=== PATIENT | male | born 1970 ===

== ENCOUNTER 2021-12-17 22:32 | Inpatient (IN) | payer OTHER ==
[~2021-12-17] VITALS: Ht 193 cm; Wt 167.8 kg
[2021-12-17 23:39] LABS: HEMATOCRIT 29.6 % (36.7-47.1); MEAN CORPUSCULAR HEMOGLOBIN 32.5 uug (23.8-33.4); MEAN CORPUSCULAR VOLUME 96.1 fL (73.0-96.2); PLATELET COUNT (AUTO) 280 K/uL (152-348)
[2021-12-17 23:41] LABS: CREATININE 1.7 mg/dL (0.6-1.3); POTASSIUM 4.9 mmol/L (3.5-5.1)
[2021-12-17 23:54] LABS: BILIRUBIN,DIRECT 0.2 mg/dL (0.0-0.2); BILIRUBIN,TOTAL 0.6 mg/dL (0.2-1.0); TOTAL PROTEIN, SERUM 7.5 g/dL (6.4-8.2)
[2021-12-18] MEDS ORDERED: AZITHROMYCIN IV 500 MG in IV DEXTROSE 5% 250 ML IV ONE (00:15)
[2021-12-18] MEDS ORDERED: CEFTRIAXONE 1 G in IV DEXTROSE 5% 50 ML IV ONE (00:15)
[2021-12-18] MEDS ORDERED: CEFTRIAXONE /D5W 50ML IVPB **ER PYXIS IV ONE (00:29)
[2021-12-18] MEDS ORDERED: AZITHROMYCIN 500MG/ D5W 250ML IVPB **ER PYXIS ONLY IV ONE (00:29)
[2021-12-18] MEDS ORDERED: CARV25TA2 PO (03:25)
[2021-12-18] MEDS ORDERED: LOSA100T31 PO (03:25)
[2021-12-18] MEDS ORDERED: TRAZ-257 PO (03:25)
[2021-12-18] MEDS ORDERED: BUDE180A IH (03:25)
[2021-12-18] MEDS ORDERED: VENL37.55 PO (03:25)
[2021-12-18] MEDS ORDERED: CHOL10005 PO (03:25)
[2021-12-18] MEDS ORDERED: ALBU8.5H8 IH (03:25)
[2021-12-18] MEDS ORDERED: ASPI81TA31 PO (03:25)
[2021-12-18] MEDS ORDERED: ATOR40TA PO (03:25)
[2021-12-18] MEDS ORDERED: METF-440 PO (03:25)
[2021-12-18] MEDS ORDERED: FERR325T28 PO (03:25)
[2021-12-18] MEDS ORDERED: ASCO-375 PO (03:25)
[2021-12-18] MEDS ORDERED: NIFE30TA2 PO (03:25)
[2021-12-18] MEDS ORDERED: ALLO100T PO (03:25)
[2021-12-18] MEDS ORDERED: IV NORMAL SALINE 250 ML IV ONE (03:30)
[2021-12-18] MEDS ORDERED: ALBUTEROL SULFATE 8 GM HFA.AER.AD IH PRN (06:15)
[2021-12-18] MEDS ORDERED: MAGNESIUM HYDROXIDE 30 ML LIQUID UDC PO PRN (06:15)
[2021-12-18] MEDS ORDERED: DEXTROSE 50% 50 ML DISP.SYRIN IV PRN (06:15)
[2021-12-18] MEDS ORDERED: ACETAMINOPHEN 325 MG TABLET PO PRN (06:15)
[2021-12-18] MEDS ORDERED: CEFTRIAXONE 1 G in IV DEXTROSE 5% 50 ML IV SCH (06:15)
[2021-12-18] MEDS ORDERED: ONDANSETRON 4 MG/2 ML VIAL IV PRN (06:15)
[2021-12-18] MEDS ORDERED: Z GUARD REMEDY PASTE 57 GM TUBE TOP PRN (06:15)
[2021-12-18] MEDS: BLOOD SUGAR DIAGNOSTIC 1 EACH STRIP VI SCH ×4 (08:22→20:41)
[2021-12-18] MEDS ORDERED: Medication Not On Formulary EA (Cholecalciferol (Vitamin D3) (Vitamin D3) 1 TAB) PO SCH (09:00)
[2021-12-18] MEDS: ASPIRIN 81 MG TAB.CHEW PO SCH (10:32)
[2021-12-18] MEDS: ASCORBIC ACID 500 MG TABLET PO SCH (10:32)
[2021-12-18] MEDS: CHOLECALCIFEROL 1,000 UNIT TABLET PO SCH (10:32)
[2021-12-18] MEDS: NIFEdipine XL 30 MG TABSR PO SCH (10:33)
[2021-12-18] MEDS: ALLOPURINOL 100 MG TABLET PO SCH (10:34)
[2021-12-18] MEDS: CARVEDILOL 25 MG TABLET PO SCH ×2 (11:17→17:14)
[2021-12-18] MEDS: PANTOPRAZOLE SODIUM 40 MG TABLET.DR PO SCH (11:17)
[2021-12-18] MEDS: INSULIN REGULAR, HUMAN 300 UNIT/3 ML VIAL SQ PRN ×3 (12:16→20:43)
[2021-12-18] MEDS: CEFTRIAXONE 2 G in IV DEXTROSE 5% 100 ML IV SCH (12:42)
[2021-12-18 12:52] VITALS: BP 167/92
[2021-12-18] MEDS ORDERED: FUROSEMIDE 40 MG/4 ML VIAL IV ONE (13:45)
[2021-12-18] MEDS: HEPARIN SODIUM,PORCINE 5,000 UNITS/ML VIAL SQ SCH ×2 (13:48→20:32)
[2021-12-18 16:24] VITALS: BP 120/63
[2021-12-18] MEDS: ATORVASTATIN 40 MG TABLET PO SCH (20:30)
[2021-12-18] MEDS: TRAZODONE 100 MG TABLET PO SCH (20:31)
[2021-12-18] MEDS: VENLAFAXINE XR 150 MG CAP.SR.24H PO SCH (20:46)
[2021-12-18] MEDS ORDERED: VENLAFAXINE XR 37.5 MG CAP.SR.24H PO SCH (21:00)
[2021-12-18] MEDS: BUDESONIDE 0.25 MG/2 ML NEBU NEB SCH ×2 (21:39→22:04)
[2021-12-19] VITALS: BP 142/67
[2021-12-19 04:31] VITALS: BP 156/74
[2021-12-19] MEDS: PANTOPRAZOLE SODIUM 40 MG TABLET.DR PO SCH (06:28)
[2021-12-19] MEDS: BLOOD SUGAR DIAGNOSTIC 1 EACH STRIP VI SCH ×4 (06:33→21:22)
[2021-12-19] MEDS: BUDESONIDE 0.25 MG/2 ML NEBU NEB SCH ×3 (07:25→19:30)
[2021-12-19 08:00] VITALS: BP 136/77
[2021-12-19 08:17] LABS: HEMATOCRIT 28.1 % (36.7-47.1); MEAN CORPUSCULAR HEMOGLOBIN 33.3 uug (23.8-33.4); MEAN CORPUSCULAR VOLUME 96.3 fL (73.0-96.2); PLATELET COUNT (AUTO) 269 K/uL (152-348)
[2021-12-19 08:28] LABS: CREATININE 1.6 mg/dL (0.6-1.3); MAGNESIUM 2.2 mg/dL (1.8-2.4); POTASSIUM 4.4 mmol/L (3.5-5.1)
[2021-12-19 08:34] LABS: THYROID STIMULATING HORMONE 1.12 mIU/mL (0.358-3.740)
[2021-12-19] MEDS ORDERED: FUROSEMIDE 40 MG/4 ML VIAL IV SCH (09:00)
[2021-12-19] MEDS: CHOLECALCIFEROL 1,000 UNIT TABLET PO SCH (10:16)
[2021-12-19] MEDS: ASPIRIN 81 MG TAB.CHEW PO SCH (10:16)
[2021-12-19] MEDS: ASCORBIC ACID 500 MG TABLET PO SCH (10:16)
[2021-12-19] MEDS: FUROSEMIDE 40 MG/4 ML VIAL IV SCH ×2 (10:17→21:23)
[2021-12-19] MEDS: ALLOPURINOL 100 MG TABLET PO SCH (10:17)
[2021-12-19] MEDS: HEPARIN SODIUM,PORCINE 5,000 UNITS/ML VIAL SQ SCH ×2 (10:18→21:45)
[2021-12-19] MEDS: NIFEdipine XL 30 MG TABSR PO SCH (10:24)
[2021-12-19] MEDS: CARVEDILOL 25 MG TABLET PO SCH ×2 (10:24→17:20)
[2021-12-19 11:00] VITALS: BP 128/68
[2021-12-19] MEDS: CEFTRIAXONE 2 G in IV DEXTROSE 5% 100 ML IV SCH (11:42)
[2021-12-19] MEDS: INSULIN REGULAR, HUMAN 300 UNIT/3 ML VIAL SQ PRN ×3 (11:45→21:25)
[2021-12-19 20:00] VITALS: BP 152/80
[2021-12-19] MEDS: VENLAFAXINE XR 150 MG CAP.SR.24H PO SCH (21:22)
[2021-12-19] MEDS: ATORVASTATIN 40 MG TABLET PO SCH (21:22)
[2021-12-19] MEDS: TRAZODONE 100 MG TABLET PO SCH (21:23)
[2021-12-20] VITALS: BP 135/75
[2021-12-20 04:00] VITALS: BP 145/52
[2021-12-20] MEDS: PANTOPRAZOLE SODIUM 40 MG TABLET.DR PO SCH (06:16)
[2021-12-20] MEDS: BLOOD SUGAR DIAGNOSTIC 1 EACH STRIP VI SCH ×4 (06:39→21:00)
[2021-12-20 06:51] LABS: HEMATOCRIT 27.5 % (36.7-47.1); MEAN CORPUSCULAR HEMOGLOBIN 32.7 uug (23.8-33.4); MEAN CORPUSCULAR VOLUME 96.4 fL (73.0-96.2); PLATELET COUNT (AUTO) 262 K/uL (152-348)
[2021-12-20 07:08] LABS: CREATININE 1.6 mg/dL (0.6-1.3); MAGNESIUM 2.1 mg/dL (1.8-2.4); PHOSPHOROUS 4.2 mg/dL (2.5-4.9); POTASSIUM 4.2 mmol/L (3.5-5.1)
[2021-12-20] MEDS: BUDESONIDE 0.25 MG/2 ML NEBU NEB SCH ×2 (07:30→19:20)
[2021-12-20] MEDS: CARVEDILOL 25 MG TABLET PO SCH ×2 (08:41→17:31)
[2021-12-20] MEDS: FUROSEMIDE 40 MG/4 ML VIAL IV SCH ×2 (09:25→20:48)
[2021-12-20] MEDS: ASPIRIN 81 MG TAB.CHEW PO SCH (09:25)
[2021-12-20] MEDS: ASCORBIC ACID 500 MG TABLET PO SCH (09:26)
[2021-12-20] MEDS: NIFEdipine XL 30 MG TABSR PO SCH (09:26)
[2021-12-20] MEDS: CHOLECALCIFEROL 1,000 UNIT TABLET PO SCH (09:26)
[2021-12-20] MEDS: ALLOPURINOL 100 MG TABLET PO SCH (09:26)
[2021-12-20] MEDS: HEPARIN SODIUM,PORCINE 5,000 UNITS/ML VIAL SQ SCH ×2 (09:27→20:59)
[2021-12-20 11:22] VITALS: BP 117/61
[2021-12-20] MEDS: CEFTRIAXONE 2 G in IV DEXTROSE 5% 100 ML IV SCH (12:04)
[2021-12-20] MEDS: INSULIN REGULAR, HUMAN 300 UNIT/3 ML VIAL SQ PRN ×3 (12:16→21:01)
[2021-12-20 15:18] VITALS: BP 155/68
[2021-12-20 20:34] VITALS: BP 158/75
[2021-12-20] MEDS: TRAZODONE 100 MG TABLET PO SCH (20:48)
[2021-12-20] MEDS: VENLAFAXINE XR 150 MG CAP.SR.24H PO SCH (20:48)
[2021-12-20] MEDS: ATORVASTATIN 40 MG TABLET PO SCH (20:48)
[2021-12-20 22:00] VITALS: BP 136/66
[2021-12-21 00:19] VITALS: BP 129/67
[2021-12-21 04:49] VITALS: BP 140/64
[2021-12-21] MEDS: PANTOPRAZOLE SODIUM 40 MG TABLET.DR PO SCH (06:15)
[2021-12-21 06:27] LABS: *BILIRUBIN,URIN NEGATIVE (NEGATIVE); *BLOOD, URINE NEGATIVE (NEGATIVE); *CLARITY,URINE CLEAR (CLEAR); *COLOR,URINE YELLOW (YELLOW); *KETONES,URINE NEGATIVE (NEGATIVE); *UROBILINOGEN,URINE 0.2 E.U./dl (NORMAL); LEUKOCYTE ESTERASE ,URINE NEGATIVE (NEGATIVE); NITRITE, URINE NEGATIVE (NEGATIVE); UGLUCOSE NEGATIVE (NEGATIVE)
[2021-12-21 06:34] LABS: BACTERIA,URINE NONE SEEN /HPF (NONE SEEN); RBC,URINE 0-3 /HPF (0-3); SQUAMOUS EPITHELIAL CELL,UR FEW /HPF (NONE SEEN); WBC,URINE 0-3 /HPF (0-3)
[2021-12-21] MEDS: BLOOD SUGAR DIAGNOSTIC 1 EACH STRIP VI SCH ×4 (06:46→21:43)
[2021-12-21] MEDS: BUDESONIDE 0.25 MG/2 ML NEBU NEB SCH ×2 (07:28→19:30)
[2021-12-21 08:10] LABS: PLATELET COUNT (AUTO) 298 K/uL (152-348)
[2021-12-21 08:22] LABS: CREATININE 1.7 mg/dL (0.6-1.3); MAGNESIUM 2.3 mg/dL (1.8-2.4); PHOSPHOROUS 4.3 mg/dL (2.5-4.9); POTASSIUM 4.2 mmol/L (3.5-5.1)
[2021-12-21] MEDS: INSULIN REGULAR, HUMAN 300 UNIT/3 ML VIAL SQ PRN ×4 (08:36→21:43)
[2021-12-21] MEDS: ASCORBIC ACID 500 MG TABLET PO SCH (08:37)
[2021-12-21] MEDS: CARVEDILOL 25 MG TABLET PO SCH ×2 (08:37→17:17)
[2021-12-21] MEDS: FUROSEMIDE 40 MG/4 ML VIAL IV SCH ×2 (08:37→21:28)
[2021-12-21] MEDS: NIFEdipine XL 30 MG TABSR PO SCH (08:38)
[2021-12-21] MEDS: CHOLECALCIFEROL 1,000 UNIT TABLET PO SCH (08:38)
[2021-12-21] MEDS: ASPIRIN 81 MG TAB.CHEW PO SCH (08:38)
[2021-12-21] MEDS: ALLOPURINOL 100 MG TABLET PO SCH (08:38)
[2021-12-21] MEDS: HEPARIN SODIUM,PORCINE 5,000 UNITS/ML VIAL SQ SCH ×2 (08:39→21:42)
[2021-12-21 11:23] VITALS: BP 110/58
[2021-12-21] MEDS: CEFTRIAXONE 2 G in IV DEXTROSE 5% 100 ML IV SCH (12:12)
[2021-12-21 12:15] LABS: *CREATININE,URINE 33.7 mg/dL (30-125); *URINE TOTAL PROTEIN RANDOM 79.9 mg/dL (<150/24HR)
[2021-12-21 15:00] VITALS: BP 132/56
[2021-12-21] MEDS: TRAZODONE 100 MG TABLET PO SCH (21:27)
[2021-12-21] MEDS: ATORVASTATIN 40 MG TABLET PO SCH (21:27)
[2021-12-21] MEDS: VENLAFAXINE XR 150 MG CAP.SR.24H PO SCH (21:28)
[2021-12-21 21:48] VITALS: BP 159/55
[2021-12-22 00:57] VITALS: BP 143/64
[2021-12-22 05:31] VITALS: BP 143/64
[2021-12-22 05:33] VITALS: BP 150/75
[2021-12-22] MEDS: PANTOPRAZOLE SODIUM 40 MG TABLET.DR PO SCH (06:34)
[2021-12-22] MEDS: BLOOD SUGAR DIAGNOSTIC 1 EACH STRIP VI SCH ×5 (07:06→23:00)
[2021-12-22] MEDS: BUDESONIDE 0.25 MG/2 ML NEBU NEB SCH ×2 (07:30→19:16)
[2021-12-22 11:10] VITALS: BP 143/69
[2021-12-22] MEDS: CHOLECALCIFEROL 1,000 UNIT TABLET PO SCH (11:16)
[2021-12-22] MEDS: NIFEdipine XL 30 MG TABSR PO SCH (11:16)
[2021-12-22] MEDS: ASCORBIC ACID 500 MG TABLET PO SCH (11:16)
[2021-12-22] MEDS: CARVEDILOL 25 MG TABLET PO SCH ×2 (11:17→16:52)
[2021-12-22] MEDS: ASPIRIN 81 MG TAB.CHEW PO SCH (11:17)
[2021-12-22] MEDS: ALLOPURINOL 100 MG TABLET PO SCH (11:17)
[2021-12-22] MEDS: FUROSEMIDE 40 MG/4 ML VIAL IV SCH ×2 (11:17→21:00)
[2021-12-22] MEDS: HEPARIN SODIUM,PORCINE 5,000 UNITS/ML VIAL SQ SCH ×2 (11:19→21:00)
[2021-12-22] MEDS: INSULIN REGULAR, HUMAN 300 UNIT/3 ML VIAL SQ PRN (11:26)
[2021-12-22] MEDS: CEFTRIAXONE 2 G in IV DEXTROSE 5% 100 ML IV SCH (13:21)
[2021-12-22 14:22] LABS: CREATININE 1.6 mg/dL (0.6-1.3); POTASSIUM 4.3 mmol/L (3.5-5.1)
[2021-12-22 15:08] VITALS: BP 103/51
[2021-12-22] MEDS: VENLAFAXINE XR 150 MG CAP.SR.24H PO SCH (21:00)
[2021-12-22] MEDS: ATORVASTATIN 40 MG TABLET PO SCH (21:00)
[2021-12-22] MEDS: TRAZODONE 100 MG TABLET PO SCH (21:00)
[2021-12-23] MEDS: INSULIN REGULAR, HUMAN 300 UNIT/3 ML VIAL SQ PRN ×3 (02:18→12:46)
[2021-12-23] MEDS: PANTOPRAZOLE SODIUM 40 MG TABLET.DR PO SCH (06:36)
[2021-12-23] MEDS: BUDESONIDE 0.25 MG/2 ML NEBU NEB SCH (07:30)
[2021-12-23 07:47] LABS: HEMATOCRIT 30.3 % (36.7-47.1); MEAN CORPUSCULAR HEMOGLOBIN 32.9 uug (23.8-33.4); MEAN CORPUSCULAR VOLUME 95.5 fL (73.0-96.2); PLATELET COUNT (AUTO) 331 K/uL (152-348)
[2021-12-23 07:59] LABS: CREATININE 1.6 mg/dL (0.6-1.3); MAGNESIUM 1.9 mg/dL (1.8-2.4); PHOSPHOROUS 3.7 mg/dL (2.5-4.9); POTASSIUM 4.6 mmol/L (3.5-5.1)
[2021-12-23] MEDS: BLOOD SUGAR DIAGNOSTIC 1 EACH STRIP VI SCH ×2 (08:11→12:32)
[2021-12-23] MEDS: HEPARIN SODIUM,PORCINE 5,000 UNITS/ML VIAL SQ SCH (08:37)
[2021-12-23] MEDS ORDERED: FUROSEMIDE 40 MG TABLET PO SCH (09:00)
[2021-12-23] MEDS: ASPIRIN 81 MG TAB.CHEW PO SCH (09:10)
[2021-12-23] MEDS: CHOLECALCIFEROL 1,000 UNIT TABLET PO SCH (09:10)
[2021-12-23] MEDS: CARVEDILOL 25 MG TABLET PO SCH (09:11)
[2021-12-23] MEDS: ASCORBIC ACID 500 MG TABLET PO SCH (09:11)
[2021-12-23] MEDS: ALLOPURINOL 100 MG TABLET PO SCH (09:11)
[2021-12-23] MEDS: NIFEdipine XL 30 MG TABSR PO SCH (09:12)
[2021-12-23] MEDS ORDERED: FURO40TA5 PO (10:02)
[2021-12-23 11:48] VITALS: BP 159/79
[2021-12-23] MEDS: CEFTRIAXONE 2 G in IV DEXTROSE 5% 100 ML IV SCH (12:00)
== END 2021-12-23 14:05 | disposition home or self-care (01) | DRG 193 ==
LOC: ER 22:34 → TELE3 12-18 02:30 → MEDSURG3 12-22 13:15
PROVIDERS: ADMIT Nurse Practitioner Acute Care; ATTEND Nurse Practitioner Acute Care
PROC: 5A09357 Assistance with Respiratory Ventilation, Less than 24 Consecutive Hours, Continuous Positive Airway Pressure (ICD-10-PCS; principal; 2021-12-18)
DX: J18.9 Pneumonia, unspecified organism (principal); I50.33 Acute on chronic diastolic (congestive) heart failure; J96.01 Acute respiratory failure with hypoxia; E44.1 Mild protein-calorie malnutrition; D68.59 Other primary thrombophilia; I42.9 Cardiomyopathy, unspecified; N17.9 Acute kidney failure, unspecified; Z68.42 Body mass index [BMI] 45.0-49.9, adult; I87.312 Chronic venous hypertension (idiopathic) with ulcer of left lower extremity; L97.329 Non-pressure chronic ulcer of left ankle with unspecified severity; I11.0 Hypertensive heart disease with heart failure; E66.01 Morbid (severe) obesity due to excess calories; L97.529 Non-pressure chronic ulcer of other part of left foot with unspecified severity; Z20.822 Contact with and (suspected) exposure to COVID-19; B35.1 Tinea unguium; E11.42 Type 2 diabetes mellitus with diabetic polyneuropathy; G47.30 Sleep apnea, unspecified; I89.0 Lymphedema, not elsewhere classified
CPT/HCPCS: 36415; 70030-TC; 71045; 83605; 83735; 84100; 84156; 84443; 85025; 85730; 87040; 87400; 93005; 93307; 94660; 97161; A4663; A6209; G0378; J0456; J0696; J1644; J1815; J1940; J3535; J3590; J7050; J7060; J8499; U0003